=== PATIENT | male | born 1955 | race Caucasian/White ===

== ENCOUNTER 2017-09-08 18:09 | Inpatient (IN) ==
--- OUTSIDE RECORDS SUMMARY | 2017-09-08 18:15 | External Medical Summary | Continuity of Care Document ---
:1955 Author Organization [facility] Care Team Providers Name Role Phone [employer] Unavailable Unavailable Encounters Location Location Encounter Encounter Reason Attending ADM DC Status Source Details Type Number For Provider Date Date Visit Agnes Thompson [facility]
--- OUTSIDE RECORDS SUMMARY | 2017-09-08 18:15 | External Medical Summary | Continuity of Care Document ---
:1955 Author Organization [facility] [place] Allergies Active Description Code Type Severity Reaction Onset Reported/ Identified Relationship Clinical to Patient Status Yes PENICILLIN 985 Misce N/A N/A 02/07/2016 llane ous Aller gy Medications Medication Packaging Start Date Stop Date Route Dosage Sig 02/07/2016 02/08/2016 IVPB 500.000 REMICADE INJ CROSS 100MG 02/21/2016 02/22/2016 IVPB 500.000 REMICADE INJ CROSS 100MG Problems Date Dx Attending Type Code Diagnosis Diagnosed By Coded 07/12/2012 Ethel [id number] JOINT PAIN-ANKLE 03/31/2013 EMILY WOODY 54468 JOINT PAIN-MULT JTS D 01/12/2014 EMILY WOODY 719.43 JOINT PAIN-FOREARM D 01/12/2014 EMILY WOODY 78488 JOINT PAIN-FOREARM D 02/07/2016 EMILY WOODY 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 02/07/2016 EMILY WOODY Z11.1 ENCOUNTER FOR D SCREENING FOR RESPIRATORY TUBERCULOSIS 02/07/2016 EMILY WOODY 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 Results Test Result Range CBC/ AUTO DIFF - 01/12/14 15:45 WHITE BLOOD COUNT 6.72 10 4.60-10.20 HEMATOCRIT 40.2 % 42.0-52.0 HEMOGLOBIN 13.8 g/dl 14.0-18.0 PLATELET COUNT 244 10 142-424 RBC 4.53 10 4.70-6.10 MCV 88.7 fl 80.0-100.0 MCH 30.5 pg 26.0-34.0 MCHC 34.3 g/dl 29.0-37.0 RDW 13.4 % 11.5-14.5 MPV 10.20 fl GRAN% 68.9 % 37.0-80.0 LYMPH% 14.60 % 10.00-50.00 MONO% 13.80 % 0.00-12.00 EOS% 2.10 % 0.00-7.00 BASO% 0.60 % 0.00-2.50 GRAN# 4.63 10 2.00-6.90 LYMPH# 0.98 10 0.60-3.40 MONO# 0.93 10 0.00-0.90 EOS# 0.14 10 0.00-0.50 BASO# 0.04 10 0.00-0.20 COMPREHENSIVE METABOL - 01/12/14 15:45 CREATININE 1.2 mg/dl 0.6-1.3 SODIUM 141 mmol/L 136-145 TOTAL BILIRUBIN 0.3 mg/dl 0.0-1.0 TOTAL PROTEIN 6.5 g/dl 6.4-8.2 ALBUMIN 3.4 g/dl 3.4-5.0 ALK. PHOSPHATASE 90 U/L 50-136 BUN 15 mg/dl 7-18 CALCIUM 8.1 mg/dl 8.5-10.1 CHLORIDE 107 mmol/L 98-107 CO2 29.2 mmol/L 21.0-32.0 GLUCOSE 97 mg/dl 70-110 POTASSIUM 4.1 mmol/L 3.5-5.1 AST 10 U/L 15-37 ALT 25 U/L 12-78 AGAP 8.9 6.0-16.0 BN/CR 12.5 6.0-20.0 C REACTIVE PROTEIN - 01/12/14 15:45 C REACTIVE PROTEIN <0.2 mg/dl 0.0-0.9 URIC ACID - 01/12/14 15:45 URIC ACID 5.1 mg/dl 2.6-7.2 QUANTIFERON TB - 02/07/16 09:10 GREG TB Performing Site: [facility] [address] [facility] [id number] RUST METABOL - 11/06/16 17:00 CREATININE 1.1 mg/dl 0.6-1.3 SODIUM 142 mmol/L 136-145 TOTAL BILIRUBIN 0.3 mg/dl 0.0-1.0 TOTAL PROTEIN 6.5 g/dl 6.4-8.2 ALBUMIN 3.4 g/dl 3.4-5.0 ALK. PHOSPHATASE 69 U/L 50-136 BUN 20 mg/dl 7-18 CALCIUM 8.6 mg/dl 8.5-10.1 CHLORIDE 106 mmol/L 98-107 CO2 27.3 mmol/L 21.0-32.0 GLUCOSE 93 mg/dl 70-110 POTASSIUM 3.1 mmol/L 3.5-5.1 AST 14 U/L 15-37 ALT 24 U/L 12-78 AGAP 11.8 6.0-16.0 BN/CR 18.2 6.0-20.0 CBC/ AUTO DIFF - 11/06/16 17:00 WHITE BLOOD COUNT 7.02 10 4.60-10.20 HEMATOCRIT 39.5 % 42.0-52.0 HEMOGLOBIN 13.1 g/dl 14.0-18.0 PLATELET COUNT 242 10 142-424 RBC 4.27 10 4.70-6.10 MCV 92.5 fl 80.0-100.0 MCH 30.7 pg 26.0-34.0 MCHC 33.2 g/dl 29.0-37.0 RDW 14.0 % 11.5-14.5 MPV 11.10 fl GRAN% 72.4 % 37.0-80.0 LYMPH% 16.70 % 10.00-50.00 MONO% 9.00 % 0.00-12.00 EOS% 1.30 % 0.00-7.00 BASO% 0.60 % 0.00-2.50 GRAN# 5.09 10 2.00-6.90 LYMPH# 1.17 10 0.60-3.40 MONO# 0.63 10 0.00-0.90 EOS# 0.09 10 0.00-0.50 BASO# 0.04 10 0.00-0.20 CBC/ AUTO DIFF - 03/05/17 17:15 WHITE BLOOD COUNT 7.24 10 4.60-10.20 HEMATOCRIT 39.4 % 42.0-52.0 HEMOGLOBIN 13.3 g/dl 14.0-18.0 PLATELET COUNT 245 10 142-424 RBC 4.39 10 4.70-6.10 MCV 89.7 fl 80.0-100.0 MCH 30.3 pg 26.0-34.0 MCHC 33.8 g/dl 29.0-37.0 RDW 13.4 % 11.5-14.5 MPV 10.30 fl GRAN% 66.1 % 37.0-80.0 LYMPH% 19.10 % 10.00-50.00 MONO% 10.10 % 0.00-12.00 EOS% 3.90 % 0.00-7.00 BASO% 0.80 % 0.00-2.50 GRAN# 4.79 10 2.00-6.90 LYMPH# 1.38 10 0.60-3.40 MONO# 0.73 10 0.00-0.90 EOS# 0.28 10 0.00-0.50 BASO# 0.06 10 0.00-0.20 COMPREHENSIVE METABOL - 03/05/17 17:15 CREATININE 0.9 mg/dl 0.6-1.3 SODIUM 136 mmol/L 136-145 TOTAL BILIRUBIN 0.4 mg/dl 0.0-1.0 TOTAL PROTEIN 7.4 g/dl 6.4-8.2 ALBUMIN 3.4 g/dl 3.4-5.0 ALK. PHOSPHATASE 68 U/L 50-136 BUN 15 mg/dl 7-18 CALCIUM 8.7 mg/dl 8.5-10.1 CHLORIDE 102 mmol/L 98-107 CO2 25.3 mmol/L 21.0-32.0 GLUCOSE 92 mg/dl 70-110 POTASSIUM 3.0 mmol/L 3.5-5.1 AST 17 U/L 15-37 ALT 24 U/L 12-78 AGAP 11.7 6.0-16.0 BN/CR 16.7 6.0-20.0 QUANTIFERON TB - 03/05/17 17:15 GREG TB Performing Site: [facility] Reference Lab [address] [facility] [address] CBC/ AUTO DIFF - 08/27/17 13:10 WHITE BLOOD COUNT 6.55 10 4.60-10.20 HEMATOCRIT 43.9 % 42.0-52.0 HEMOGLOBIN 14.4 g/dl 14.0-18.0 PLATELET COUNT 229 10 142-424 RBC 4.60 10 4.70-6.10 MCV 95.4 fl 80.0-100.0 MCH 31.3 pg 26.0-34.0 MCHC 32.8 g/dl 29.0-37.0 RDW 15.6 % 11.5-14.5 MPV 10.00 fl GRAN% 68.7 % 37.0-80.0 LYMPH% 19.50 % 10.00-50.00 MONO% 9.20 % 0.00-12.00 EOS% 1.50 % 0.00-7.00 BASO% 1.10 % 0.00-2.50 GRAN# 4.50 10 2.00-6.90 LYMPH# 1.28 10 0.60-3.40 MONO# 0.60 10 0.00-0.90 EOS# 0.10 10 0.00-0.50 BASO# 0.07 10 0.00-0.20 SEGS 67 % 40-60 LYMPHS 22 % 20-40 MONOS 11 % 4-8 PLTMORPH NORMAL ANISO 1+ COMPREHENSIVE METABOL - 08/27/17 13:10 CREATININE 1.1 mg/dl 0.6-1.3 SODIUM 143 mmol/L 136-145 TOTAL BILIRUBIN 0.4 mg/dl 0.0-1.0 TOTAL PROTEIN 6.4 g/dl 6.4-8.2 ALBUMIN 3.4 g/dl 3.4-5.0 ALK. PHOSPHATASE 72 U/L 50-136 BUN 21 mg/dl 7-18 CALCIUM 9.2 mg/dl 8.5-10.1 CHLORIDE 104 mmol/L 98-107 CO2 32.1 mmol/L 21.0-32.0 GLUCOSE 113 mg/dl 70-110 POTASSIUM 3.2 mmol/L 3.5-5.1 AST 17 U/L 15-37 ALT 34 U/L 12-78 AGAP 10.1 6.0-16.0 BN/CR 19.1 6.0-20.0 Encounters ACCT No. Visit Discharge Status Pt. Type Provider Facility Loc./Unit Complaint Date/Time [id number] 08/27/2017 08/27/2017 DIS Outpatient BONG [facility] LAB 13:00:00 13:00:00 [facility] [id number] 03/05/2017 03/05/2017 DIS Outpatient BONG [facility] LAB 16:55:00 16:55:00 [facility] [id number] 11/06/2016 11/06/2016 DIS [facility] BONG [facility] LAB 16:41:00 16:41:00 [facility] [id number] 06/12/2016 06/12/2016 DIS Outpatient BONG [facility] RAD 16:18:00 16:18:00 [facility] [id number] 02/21/2016 02/21/2016 DIS Outpatient ZANDER [facility] MOP 08:50:00 13:02:00 [facility] [id number] 02/07/2016 02/07/2016 DIS Outpatient BONG [facility] LOP 08:54:00 12:23:00 [facility] [id number] 01/10/2016 01/10/2016 CAN Outpatient BNOG [facility] MOP 08:07:42 08:07:42 [facility] [id number] 01/12/2014 01/12/2014 DIS Outpatient BONG [facility] LX 15:24:00 15:24:00 [facility] [place] [id number] 03/31/2013 03/31/2013 DIS Outpatient BONG [facility] LX 17:24:00 17:24:00 [facility] [id number] 07/12/2012 Document 10:45:00 Registration
[2017-09-08] MEDS ORDERED: NITROGLYCERIN 2% OINTMENT 1gm PACKET TP ONE (18:26)
[2017-09-08 19:27] VITALS: BMI 30.3
[2017-09-08] MEDS: MORPHINE SULFATE 10 MG SYRINGE IVP PRN ×2 (21:27→23:58)
[2017-09-09] MEDS: MORPHINE SULFATE 10 MG SYRINGE IVP PRN ×2 (05:33→11:04)
[2017-09-09] MEDS ORDERED: HEPARIN 1,000unit/ml INJECTION 10ml IVP ONE (06:00)
[2017-09-09] MEDS ORDERED: HEPARIN DRIP 20,000 UNIT/500 ML BAG IV SCH (06:00)
[2017-09-09] MEDS ORDERED: HEPARIN - PHARMACY CONSULT MC ONE (06:00)
--- NOTE | 2017-09-09 07:10 | Pharmacy Consult ---
Pharmacy Consult-Heparin - Laboratory Information Heparin Plt Count 214 T/MM3 (130-400) 09/09/17 04:17 APTT 34.4 SEC (24-36) 09/08/17 19:37 - Consult Information HEPARIN CONSULT (Initial): CARDIAC DOSING HEPARIN PROTOCOL Baseline PTT = 34.4 Sec. Baseline platelet count = 228 T/mm3. PTT Target Range = 50-75 SEC Will give Heparin Bolus of 5500 units, start Heparin Drip at 1120units/hr (28ml/ hr). Heparin 20,000 units in D5W 500ml. We will continue to monitor and make adjustments accordingly. Thank you.
[2017-09-09] MEDS: ASPIRIN 81 MG CHEWABLE TABLET PO SCH (08:18)
--- NOTE | 2017-09-09 10:56 | Cardiology History & Physical ---
History of Present Illness Chief complaint: Chest Pain, Elevated Troponin HPI: Pt is a 61 year old male with a PMH of HTN, COPD, and ankylosing spondylitis who presented to [facility] last evening following a 2-day history of increasing chest pain. Pt reports a burning, mid-sternal chest pain without radiation with associated nausea, diaphoresis, shortness of breath and near syncope. Pt states the chest pain was not precipitated by any particular activity and has not subsided with rest. Troponin was found to be elevated at 4.56 and EKG indicates possible anterolateral infarct. Pt received 324 mg of ASA and 100 mg of Lovenox SC prior to transfer to [facility]. Pt continues to report chest pain and ongoing shortness of breath requiring 2L of O2 per MT. Pt does not require oxygen at home. Review of Systems - Constitutional Constitutional: Absent: chills, fever(s) - EENMT Eyes: Absent: loss of vision Ears: Absent: ear discharge, ear pain Balance: Absent: vertigo Mouth/Throat: Absent: changes in swallowing - Cardiovascular Cardiovascular: Absent: chest pain, palpitations, syncope, edema, heart murmur Rhythm: Present: regular rhythm Vascular: Present: intermittent claudication, pedal edema Cardiovascular Comments: Intermittent - Respiratory Respiratory: Present: cough, dyspnea, dyspnea on exertion. Absent: chest congestion, excessive phlegm production Respiratory Comments: NonproductiveO2 per NC - Gastrointestinal Gastrointestinal: Absent: abdominal pain, diarrhea, nausea, vomiting - Genitourinary Genitourinary: Absent: dysuria, urinary frequency, urinary urgency - Musculoskeletal Musculoskeletal: Present: arthralgias - Integumentary/Breasts Integumentary: Absent: rash - Neurological Neurological: Absent: abnormal speech, dizziness - Psychiatric Psychiatric: Absent: anxiety, depression [facility] Patient Stated Medical History Angina Yes Hypertension Yes Chronic Obstructive Pulmonary Yes: 2000 Disease (COPD) Hx Kidney Stones Yes Other Musculoskeletal Yes: ANKYLOSING SPONDYLYTIS Chemotherapy Yes: METHOTREXATE Surgical History: Multiple back surgeries. Hernia surgery x 4. Appendectomy Family History: Mother - HTN, from [place] Sister - [place] associated at age 54 - Social History Smoking status: Former smoker Substance use type: does not use Alcohol intake: current Alcohol intake frequency: holidays/special occasions only Housing: house Household members: spouse Does patient use chewing tobacco?: No Current residence: Apartment/Private Home Medications Home Medications Medication Instructions Recorded Confirmed Type Albuterol Sulfate [Proair Hfa] 8.5 gm IH PRN #0 12/09/11 History Adalimumab [Humira] 40 mg SQ FR 09/08/17 09/08/17 History Atenolol [Tenormin] 1 tab PO DAILY 09/08/17 09/08/17 History Chlorthalidone 25 mg PO DAILY 09/08/17 09/08/17 History Cyclobenzaprine [Flexeril] 1 tab PO HS 09/08/17 09/08/17 History Diclofenac Potassium 1 tab PO BID 09/08/17 09/08/17 History Duloxetine [Cymbalta] 60 mg PO HS 09/08/17 09/09/17 History Leflunomide 20 mg PO DAILY 09/08/17 09/08/17 History METHOTREXATE 2.5mg TAB 2.5 mg PO SA 09/08/17 09/08/17 History [Methotrexate] Potassium Chloride 20 meq PO DAILY 09/08/17 09/08/17 History PredniSONE [Deltasone 5 mg] 7.5 mg PO DAILY 09/08/17 09/08/17 History Diclofenac Sodium 50 mg PO BID 09/09/17 09/09/17 History Allergies Allergy/AdvReac Type Severity Reaction Status Date / Time Penicillins Allergy HEART Verified 09/08/17 19:12 STOPPAGE Exam Vital signs: Temperature 98.0 F 09/09/17 08:30 Pulse Rate 79 09/09/17 08:49 Respiratory Rate 18 09/09/17 08:30 Blood Pressure 122/77 09/09/17 08:30 Pulse Oximetry 95 09/09/17 08:30 - Constitutional no acute distress, well nourished, cooperative - Routine HEENT Exam Head: Present: normocephalic, atraumatic Eye: Present: EOMI, PERRL ENT: Present: mucous membranes moist - Routine Neck Exam Present: supple, trachea midline. Absent: JVD, carotid bruit - Routine Chest/Breast/Axilla Exam Chest wall: Absent: tenderness - Routine Respiratory Exam Present: decreased breath sounds Comments: O2 per NC - Routine Cardiovascular Exam Present: RRR, S1, S2. Absent: no murmur, JVD - Routine Abdominal Exam Present: soft, normoactive bowel sounds, non tender - Routine Extremities Exam Present: pulses intact. Absent: no edema - Routine Skin Exam Present: intact, dry, warm - Routine Neurological Exam Present: alert, oriented X3, moving all extremities, normal speech - Routine Psychiatric Exam Present: normal affect, normal thought process, cooperative Results 09/10/17 04:36 09/10/17 04:36 Cardiac Enzymes 09/08/17 09/08/17 09/09/17 Range/Units 18:39 23:54 04:17 Troponin I 4.660 H 3.680 H 3.720 H (0-0.12) ng/ml Coagulation 09/08/17 Range/Units 19:37 APTT 34.4 (24-36) SEC Lipids 09/09/17 Range/Units 04:17 Triglycerides 327 H (40-160) mg/dL Cholesterol 252 H (132-199) mg/dL HDL Cholesterol 40 (40-60) mg/dL Cholesterol/HDL Ratio 6.3 H (0-5.0) RATIO CBC 09/08/17 09/09/17 Range/Units 19:37 04:17 WBC 11.6 H 9.3 (4.5-11.0) T/MM3 RBC 4.59 4.40 L (4.50-5.90) M/MM3 Hgb 14.4 13.8 (13.5-17.5) GM/DL Hct 44.1 43.0 (41-53) % Plt Count 228 214 (130-400) T/MM3 Neut # (Auto) 9.6 H 6.8 (1.8-7.7) T/MM3 Lymph # (Auto) 1.0 1.5 (1-4.8) T/MM3 [place] # (Auto) 0.8 0.9 H (0-0.8) T/MM3 Eos # (Auto) 0.0 0.1 (0-0.5) T/MM3 Baso # (Auto) 0.0 0.0 (0-0.2) T/MM3 Comprehensive Metabolic Panel 09/09/17 Range/Units 04:17 Sodium 145 H (134-144) MEQ/L Potassium 3.9 (3.6-5) MEQ/L Chloride 103 (98-107) MEQ/L Carbon Dioxide 33 H (22-30) MEQ/L BUN 16.0 (9-20) MG/DL Creatinine 0.9 (0.8-1.5) mg/dL Glucose 107 (75-110) MG/DL Calcium 9.4 (8.4-10.2) MG/DL Intake and Output 09/08/17 09/09/17 09/09/17 22:59 06:59 14:59 Intake Total 120 / 120 120 / 120 120 / 120 Output Total 500 / 500 425 / 425 0 / 0 Balance -380 / -380 -305 / -305 120 / 120 Intake: Oral 120 / 120 120 / 120 120 / 120 Output: Urine 500 / 500 425 / 425 0 / 0 Other: Urine Appearance Clear Clear Urine Color Yellow Dark Yellow Weight 95.9 kg 95.3 kg Patient Weight 09/10/17 06:59 Weight 95.3 kg - Imaging and Cardiology Echo: pending EKG results: image reviewed - EKG Interpretation EKG: sinus rhythm (Inferior infarct, age undetermined, ST-T changes to II and AVF) EKG shows: sinus rhythm EKG interpretations - EKG EKG results cardiology: sinus rhythm - Dysrhythmias Sinus rhythms and dysrhythmias: sinus rhythm - Blocks, axis, hypertrophy, ST abn Repolarization changes or abnormalities: ST or T wave suggestive of ischemia - AK, pacemaker, normal Myocardial infarction: inferior AK (old age indeterminate) Hospital Course This is a general summary of the patient's hospital course. For more details refer to the complete medical record. Time spent with patient: 25 - 35 minutes Assessment and Plan - Assessment and Plan (1) Chest pain Current visit: Yes Status: Acute (2) Elevated troponin Current visit: Yes Status: Acute (3) Hypertension Current visit: Yes Status: Acute (4) Hyperlipidemia Current visit: Yes Status: Acute (5) Ankylosing spondylitis Current visit: Yes Status: Chronic (6) COPD (chronic obstructive pulmonary disease) Current visit: Yes Status: Chronic - Assessment and Plan Chest Pain/Elevated Troponin - Troponin 4.6 >>3.6>>3.7 - EKG: SR, Inferior AK (age undetermined), - Left Heart Cath today - Start asa 81 mg and lisinopril 2.5 mg daily - Resume Atenolol 100 mg daily - Echo pending Hypertension - Resume BB and chlorthalidone - Start lisinopril 2.5 mg daily Hyperlipidemia - LDL 146.6 - Start Atorvastatin 40 mg PO daily Ankylosing Spondylitis - Resume home meds - Managed by PCP COPD - Resume home meds - Managed by PCP
[2017-09-09] MEDS ORDERED: IOHEXOL 350mg/ml 200ml BOTTLE ONE ×2 (11:10→13:34)
[2017-09-09] MEDS ORDERED: LIDOCAINE 1% (10mg/ml) 30ml SDV INJ ONE (11:10)
[2017-09-09] MEDS ORDERED: HEPARIN 1,000 UNITS/500 ML PREMIX (*CVL ONLY*) IV ONE (11:10)
[2017-09-09] MEDS: NS 1,000 ML IV SCH (11:38)
[2017-09-09] MEDS ORDERED: NITROGLYCERIN 50MG INJECTION IV ONE (13:06)
[2017-09-09] MEDS ORDERED: MIDAZOLAM 2mg/2ml INJECTION ONE (13:06)
[2017-09-09] MEDS ORDERED: Verapamil 5 MG/2 ML VIAL ONE (13:06)
[2017-09-09] MEDS ORDERED: FentaNYL 250 MCG/5 ML INJECTION ONE (13:07)
[2017-09-09] MEDS ORDERED: HEPARIN 1,000unit/ml INJECTION 10ml ONE (13:07)
[2017-09-09] MEDS ORDERED: TICAGRELOR 90 MG TABLET ONE (13:24)
[2017-09-09] MEDS ORDERED: EPTIFIBATIDE ONE (13:36)
[2017-09-09] MEDS ORDERED: EPTIFIBATIDE 75 MG/100 ML VIAL IV ONE (13:36)
[2017-09-09] MEDS ORDERED: HYDROCODONE/APAP 5mg/325mg TABLET PO PRN (14:34)
[2017-09-09] MEDS ORDERED: METOCLOPRAMIDE 10mg/2ml INJECTION IVP PRN (14:34)
[2017-09-09] MEDS ORDERED: NITROGLYCERIN 0.4 MG SUBLINGUAL TABLET SL PRN (14:34)
[2017-09-09] MEDS ORDERED: ONDANSETRON 4 MG/2 ML INJECTION IVP PRN (14:34)
[2017-09-09] MEDS ORDERED: BISACODYL 10 MG SUPPOSITORY RECTALLY PRN (14:34)
[2017-09-09] MEDS ORDERED: ATROPINE 1 MG/ML INJECTION IVP PRN (14:34)
[2017-09-09] MEDS ORDERED: ACETAMINOPHEN 325 MG TABLET PO PRN (14:34)
[2017-09-09] MEDS ORDERED: MORPHINE SULFATE 4mg INJECTION IVP PRN ×2 (14:34)
[2017-09-09] MEDS ORDERED: Bisacodyl EC TAB 5 MG TABLET PO PRN (14:34)
[2017-09-09] MEDS ORDERED: LORazepam 0.5 MG TABLET PO PRN (14:34)
[2017-09-09] MEDS ORDERED: PROMETHAZINE 25 MG INJECTION IVP PRN (14:34)
[2017-09-09] MEDS ORDERED: MAG-AL + SIM ORAL LIQUID 30ml PO PRN (14:34)
[2017-09-09] MEDS: LISINOPRIL 2.5 MG TABLET PO SCH (14:45)
[2017-09-09] MEDS: EPTIFIBATIDE 75 MG/100 ML VIAL IV SCH ×3 (14:46→20:29)
[2017-09-09] MEDS ORDERED: SALINE 0.65% NASAL SPRAY 44 ML BOTTLE EA NOSTRIL PRN (18:30)
[2017-09-09] MEDS ORDERED: CYCLOBENZAPRINE 10 MG TABLET PO SCH (21:00)
[2017-09-09] MEDS ORDERED: DULOXETINE 60 MG CAPSULE PO SCH (21:00)
[2017-09-09] MEDS ORDERED: ATORVASTATIN 40 MG TABLET PO SCH (21:00)
[2017-09-10] MEDS: NS 1,000 ML IV SCH (00:03)
[2017-09-10] MEDS: EPTIFIBATIDE 75 MG/100 ML VIAL IV SCH ×2 (00:42→04:46)
[2017-09-10] MEDS ORDERED: TICAGRELOR 90 MG TABLET PO SCH (01:37)
--- NOTE | 2017-09-10 06:48 | Echocardiogram ---
DATE OF PROCEDURE September 09, 2017 This is a two-dimensional echo with spectral Doppler, color-flow and M-mode. It was obtained in a patient with chest pain. Left atrium is dilated. Left ventricular end-diastolic dimension is normal. Left ventricle wall thickness is increased. Inferior and basal septum are hypokinetic with ejection fraction of about 55%. Right atrium is normal. Right ventricle is normal. Aortic root dimension is normal. Mitral valve is morphologically normal with mild mitral regurgitation. Aortic valve appears to be normal. Tricuspid valve shows mild tricuspid regurgitation with normal estimated pulmonary artery systolic pressure of 23. Pulmonary valve shows trace of pulmonary insufficiency. There is no pericardial effusion. IMPRESSION 1. Wall motion abnormalities as described above with ejection fraction of about 55%. 2. Concentric left ventricular hypertrophy. 3. Left atrial dilation. 4. Mild mitral regurgitation. 5. Mild tricuspid regurgitation with normal estimated pulmonary artery systolic pressure of 23. 6. Trace of pulmonary insufficiency. MTDD
--- NOTE | 2017-09-10 07:51 | Cardiac Catheterization Report ---
DATE OF PROCEDURE September 09, [address] Nestor Blanchard The patient is a pleasant 61-year-old gentleman with chest pain and elevation in troponin and was referred for further evaluation by cardiac catheterization and possible intervention. Informed consent was obtained after explaining the procedure and the potential risks to the patient who agreed to proceed with the procedure. PROCEDURE 1. Left heart catheterization. 2. Coronary angiography. 3. Left ventriculography. 4. Recanalization PTCA and stent of the RCA using a 2.75 x 18 drug-eluting Resolute [place] stent. TECHNIQUE He was prepped and draped in the usual sterile techniques. Conscious sedation was performed using Versed and fentanyl. 1% lidocaine was used for local anesthesia. Using modified Seldinger technique, arterial access was obtained into the right radial artery with placement of a 6-Tanzanian arterial sheath. 3000 units of heparin, 300 mcg of nitroglycerin, and 2.5 mg of verapamil were given through the arterial sheath. The patient was on heparin drip. Heparin drip was stopped after additional 2000 units of IV heparin. He also received 180 mg of Brilinta in lab specialist. He was also started on Integrilin. CORONARY ANGIOGRAPHY Left main was free of significant lesions. Left anterior descending artery had minor irregularities with no significant lesions in LAD or diagonals. Left circumflex artery was codominant with no significant lesions in circumflex or marginals. Right coronary artery was occluded distally with [id number] collaterals. After reviewing the images we decided to proceed with intervention on RCA. A 6- [place] Ikari guide was advanced to the ostium of the right coronary artery. A Runthrough wire was used to cross the lesion into distal RCA. We attempted to get a 2.0 x 15 balloon to the lesion site. However, we were not able to advance it through the midsegment of the RCA due to lack of backup support and therefore we changed our guide. We used an AL-2 guide which was advanced to the ostium of the right coronary artery. A Runthrough wire was used to cross the lesion again into distal PDA. A 2.0 x 15 balloon was delivered to the lesion site where it was inflated up to 14 atmospheres. Next, angiogram showed reconstitution of the flow. However, flow was quite slow distal to the occlusion. At this point we started him on Integrilin and used a 2.75 x 18 drug -eluting Resolute Mark stent which was delivered to the lesion site and deployed by inflating the balloon to 14 atmospheres. Next, angiogram showed excellent results with no residual stenosis with improved blood flow into distal RCA and into the PDA. The patient tolerated the procedure well with no complications. IMPRESSION 1. Coronary artery disease as described above. 2. Occlusion of the distal RCA. 3. Successful recanalization PTCA and stent of the distal RCA using a 2.75 x 18 drug-eluting Resolute Mark stent. PLAN Will keep him on dual antiplatelet therapy at least for one year. Will continue Integrilin for 18 hours. Will start him on beta blockers, GILSON inhibitors and statins and follow him closely. ALANA
[2017-09-10] MEDS ORDERED: PredniSONE 5 MG TABLET PO SCH (08:00)
[2017-09-10] MEDS: ASPIRIN 81 MG CHEWABLE TABLET PO SCH (08:19)
[2017-09-10] MEDS: LISINOPRIL 2.5 MG TABLET PO SCH (08:20)
[2017-09-10 08:46] VITALS: BP 130/71; RESP 20; TEMP 98; O2SAT 97
[2017-09-10 08:52] VITALS: PULSE 112
[2017-09-10] MEDS ORDERED: LEFLUNOMIDE 10 MG TABLET PO SCH (09:00)
[2017-09-10] MEDS ORDERED: CHLORTHALIDONE 25 MG TABLET PO SCH (09:00)
[2017-09-10] MEDS ORDERED: ASPIRIN *EC* 81 MG TABLET PO SCH (09:00)
[2017-09-10] MEDS ORDERED: DULOXETINE 60 MG CAPSULE PO SCH (09:00)
[2017-09-10] MEDS ORDERED: ATENOLOL 100 MG TABLET PO SCH (09:00)
--- NOTE | 2017-09-10 10:42 | Work/School Release ---
Work/School Release - Date Date: 09/10/17 - Work Release Remain off work/school for:: 1 week Excused for:: MS s/p PCI with stenting to RCA May return to work on:: September 18, 2017 Restrictions:: No driving, no lifting >10 lbs for one week, no strenuous pushing or pulling for one week May resume normal activity on:: 09/18/17
--- NOTE | 2017-09-10 10:53 | Discharge Summary ---
<Ciara Wren - Last Filed: 09/10/17 11:13> Discharge Information Date of admission: 09/09/17 15:00 Anticipated date of discharge: 09/10/17 (Stable) Attending Physician: Felix Heredia MD Primary care physician: Nestor Blanchard, DO Consults: 09/09/17 14:34 Outpt Cardiac Rehab Consult [CONS] Routine - Discharge Diagnosis (1) Chest pain Status: Resolved (2) Elevated troponin Status: Acute (3) Hypertension Status: Chronic (4) Hyperlipidemia Status: Chronic (5) Ankylosing spondylitis Status: Chronic (6) COPD (chronic obstructive pulmonary disease) Status: Chronic (7) Hypokalemia Status: Acute CAD, HTN, HLD, COPD, ankylosing spondylosis, s/p PCI with stenting to RCA, hypokalemia - Procedures Procedures: [place] [address] Cardiac Catheterization Report Draft Patient: Elbert Cueva MR#: [id number] : 1955 Age/Sex: 61 / M ADM Date: 09/09/17 Loc: CCU 3-P DIS Date: = = = = = = = = = = = = = = = = = = = = = = = = = = = = = = = = = = = = = = = = = = = = = = = = = = = = = = = = = = = Date of Exam: 09/09/17 Type of Exam(s): CA heart cath LT DATE OF PROCEDURE September 09, [address] Nestor Blanchard The patient is a pleasant 61-year-old gentleman with chest pain and elevation in troponin and was referred for further evaluation by cardiac catheterization and possible intervention. Informed consent was obtained after explaining the procedure and the potential risks to the patient who agreed to proceed with the procedure. PROCEDURE 1. Left heart catheterization. 2. Coronary angiography. 3. Left ventriculography. 4. Recanalization PTCA and stent of the RCA using a 2.75 x 18 drug-eluting Resolute Mark stent. TECHNIQUE He was prepped and draped in the usual sterile techniques. Conscious sedation was performed using Versed and fentanyl. 1% lidocaine was used for local anesthesia. Using modified Seldinger technique, arterial access was obtained into the right radial artery with placement of a 6-Spanish arterial sheath. 3000 units of heparin, 300 mcg of nitroglycerin, and 2.5 mg of verapamil were given through the arterial sheath. The patient was on heparin drip. Heparin drip was stopped after additional 2000 units of IV heparin. 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 He was also started on Integrilin. CORONARY ANGIOGRAPHY Left main was free of significant lesions. Left anterior descending artery had minor irregularities with no significant lesions in LAD or diagonals. Left circumflex artery was codominant with no significant lesions in circumflex or marginals. Right coronary artery was occluded distally with [id number] collaterals. After reviewing the images we decided to proceed with intervention on RCA. A 6- Spanish Ikari guide was advanced to the ostium of the right coronary artery. A Runthrough wire was used to cross the lesion into distal RCA. We attempted to get a 2.0 x 15 balloon to the lesion site. However, we were not able to advance it through the midsegment of the RCA due to lack of backup support and therefore we changed our guide. We used an AL-2 guide which was advanced to the ostium of the right coronary artery. A Runthrough wire was used to cross the lesion again into distal PDA. A 2.0 x 15 balloon was delivered to the lesion site where it was inflated up to 14 atmospheres. Next, angiogram showed reconstitution of the flow. However, flow was quite slow distal to the occlusion. At this point we started him on Integrilin and used a 2.75 x 18 drug -eluting Resolute Mark stent which was delivered to the lesion site and deployed by inflating the balloon to 14 atmospheres. Next, angiogram showed excellent results with no residual stenosis with improved blood flow into distal RCA and into the PDA. The patient tolerated the procedure well with no complications. IMPRESSION 1. Coronary artery disease as described above. 2. Occlusion of the distal RCA. 3. Successful recanalization PTCA and stent of the distal RCA using a 2.75 x 18 drug-eluting Resolute Mark stent. PLAN Will keep him on dual antiplatelet therapy at least for one year. Will continue Integrilin for 18 hours. Will start him on beta blockers, GILSON inhibitors and statins and follow him closely. - Laboratory Labs: 09/10/17 04:36 09/10/17 04:36 - Radiology Radiology: [address] [address] Echocardiogram Draft Patient: Elbert Cueva MR#: [id number] : 1955 Age/Sex: 61 / M ADM Date: 09/09/17 Loc: CCU 3-P DIS Date: = = = = = = = = = = = = = = = = = = = = = = = = = = = = = = = = = = = = = = = = = = = = = = = = = = = = = = = = = = = Date of Exam: 09/09/17 Type of Exam(s): US echo doppler complete DATE OF PROCEDURE September 09, 2017 This is a two-dimensional echo with spectral Doppler, color-flow and M-mode. It was obtained in a patient with chest pain. Left atrium is dilated. Left ventricular end-diastolic dimension is normal. Left ventricle wall thickness is increased. Inferior and basal septum are hypokinetic with ejection fraction of about 55%. Right atrium is normal. Right ventricle is normal. Aortic root dimension is normal. Mitral valve is morphologically normal with mild mitral regurgitation. Aortic valve appears to be normal. Tricuspid valve shows mild tricuspid regurgitation with normal estimated pulmonary artery systolic pressure of 23. Pulmonary valve shows trace of pulmonary insufficiency. There is no pericardial effusion. IMPRESSION 1. Wall motion abnormalities as described above with ejection fraction of about 55%. 2. Concentric left ventricular hypertrophy. 3. Left atrial dilation. 4. Mild mitral regurgitation. 5. Mild tricuspid regurgitation with normal estimated pulmonary artery systolic pressure of 23. 6. Trace of pulmonary insufficiency. History of Present Illness HPI: Pt is a 61 year old male with a PMH of HTN, COPD, and ankylosing spondylitis who presented to [facility] last evening following a 2-day history of increasing chest pain. Pt reports a burning, mid-sternal chest pain without radiation with associated nausea, diaphoresis, shortness of breath and near syncope. Pt states the chest pain was not precipitated by any particular activity and has not subsided with rest. Troponin was found to be elevated at 4.56 and EKG indicates possible anterolateral infarct. Pt received 324 mg of ASA and 100 mg of Lovenox SC prior to transfer to [facility]. Pt continues to report chest pain and ongoing shortness of breath requiring 2L of O2 per NC. Pt does not require oxygen at home. Pt underwent right radial, left heart cath on 09/09 with successful stenting of the RCA. 09/10/17 10:55 09/10/17 11:02 Hospital Course This is a general summary of the patient's hospital course. For more details refer to the complete medical record. Chest Pain/Elevated Troponin - Troponin 4.6 >>3.6>>3.7>>4.6 - EKG 09/10/17: SR, LVH, Anterior and Inferior IL (age undetermined), - Left Heart Cath 09/09/17 with stenting to the RCA - Continue asa 81 mg, lisinopril 2.5 mg daily, and Brilinta 90 mg PO BID - Continue Atenolol 100 mg daily - Echo 09/09/17 1. Wall motion abnormalities as described above with ejection fraction of about 55%. 2. Concentric left ventricular hypertrophy. 3. Left atrial dilation. 4. Mild mitral regurgitation. 5. Mild tricuspid regurgitation with normal estimated pulmonary artery systolic pressure of 23. 6. Trace of pulmonary insufficiency. - Pt and family educated extensively regarding the importance of taking Brilinta and asa daily and to not stop taking for any reason. Pt is to notify Dr. Heredia 's office if having any difficulties with Brilinta. - 30 day Rx for Brilinta provided - 90 day Rx for Brilinta, and Rx for lisinopril and atorvastatin provided to [facility] in [place] - Work release provided to pt - Family emergency note provided to pt's daughter Hypertension - Continue BB, chlorthalidone, and GILSON Hyperlipidemia - LDL 146.6 - Continue Atorvastatin 40 mg PO daily Ankylosing Spondylitis - Resume home meds - Managed by PCP COPD - Resume home meds - Managed by PCP Hypokalemia - K+ 3.1 this am - Potassium 40 MeQ PO x 1 this am - Follow up with PCP Time spent with patient: 25 - 35 minutes Resuscitation Status: Full Code Exam Vital signs: Temperature 98.0 F 09/10/17 08:01 Pulse Rate 112 H 09/10/17 08:52 Respiratory Rate 20 09/10/17 07:00 Blood Pressure 130/71 09/10/17 08:01 Pulse Oximetry 97 09/10/17 08:01 - Constitutional no acute distress, well nourished, cooperative - Routine HEENT Exam Head: Present: normocephalic, atraumatic Eye: Present: EOMI, PERRL ENT: Present: mucous membranes moist - Routine Neck Exam Present: supple, trachea midline. Absent: JVD, carotid bruit - Routine Chest/Breast/Axilla Exam Chest wall: Absent: tenderness - Routine Respiratory Exam Present: CTA bilaterally - Routine Cardiovascular Exam Present: RRR, S1, S2. Absent: no murmur, JVD - Routine Abdominal Exam Present: soft, normoactive bowel sounds, non tender - Routine Extremities Exam Present: no edema, pulses intact, normal capillary refill Comments: Good pulse to right radial. No redness, swelling or drainage noted. - Routine Skin Exam Present: warm - Routine Neurological Exam Present: alert, oriented X3, moving all extremities - Routine Psychiatric Exam Present: normal affect, normal thought process, cooperative Results 09/10/17 04:36 09/10/17 04:36 Cardiac Enzymes 09/10/17 Range/Units 04:36 Troponin I 4.630 H (0-0.12) ng/ml CBC 09/09/17 09/10/17 Range/Units 17:37 04:36 WBC 8.6 8.4 (4.5-11.0) T/MM3 RBC 4.31 L 4.24 L (4.50-5.90) M/MM3 Hgb 13.6 13.3 L (13.5-17.5) GM/DL Hct 41.9 41.4 (41-53) % Plt Count 201 207 (130-400) T/MM3 Neut # (Auto) 5.8 (1.8-7.7) T/MM3 Lymph # (Auto) 1.3 (1-4.8) T/MM3 [place] # (Auto) 1.1 H (0-0.8) T/MM3 Eos # (Auto) 0.1 (0-0.5) T/MM3 Baso # (Auto) 0.0 (0-0.2) T/MM3 Comprehensive Metabolic Panel 09/10/17 Range/Units 04:36 Sodium 141 (134-144) MEQ/L Potassium 3.1 L D (3.6-5) MEQ/L Chloride 101 (98-107) MEQ/L Carbon Dioxide 31 H (22-30) MEQ/L BUN 15.0 (9-20) MG/DL Creatinine 1.0 (0.8-1.5) mg/dL Glucose 94 (75-110) MG/DL Calcium 9.1 (8.4-10.2) MG/DL Intake and Output 09/09/17 09/10/17 09/10/17 22:59 06:59 14:59 Intake Total 772.794 / 772.794 721.984 / 721.984 377.936 / 377.936 Output Total 400 / 400 600 / 600 Balance 372.794 / 372.794 121.984 / 121.984 377.936 / 377.936 Intake: IV 672.794 / 672.794 721.984 / 721.984 187.936 / 187.936 Eptifibatide 75 mg In 100 ml @ 110.294 / 110.294 121.984 / 121.984 19.186 / 19.186 2 MCG/KG/MIN 15.248 mls/hr IV . Q6H34M DG Rx#:[id number] Ns 1,000 ml @ 75 mls/hr IV . 562.5 / 562.5 600.00 / 600.00 168.75 / 168.75 [id number] DG Rx#:[id number] Oral 100 / 100 190 / 190 Output: Urine 400 / 400 600 / 600 Other: # Voids 1 2 - Imaging and Cardiology EKG results: image reviewed - EKG Interpretation EKG: sinus rhythm (LVH, anterior and inferior IL, age undetermined) Discharge Plan - Med Rec/Dispo Referrals/Follow Up: Felix Heredia MD [Physician] - 09/28/17 9:00 am Hilary Instructions: [facility] Heart Cath Trans Rad Prescriptions: New Adalimumab [Humira] 40 mg PO FR Aspirin *EC* [Ecotrin] 81 mg PO DAILY tab Atenolol [Tenormin] 100 mg PO DAILY tab Cyclobenzaprine [Flexeril] 10 mg PO HS tab Duloxetine [Cymbalta] 60 mg PO HS cap Leflunomide [Arava] 20 mg PO DAILY tab Lisinopril [Prinivil] 2.5 mg PO DAILY #30 tab Atorvastatin [Lipitor] 40 mg PO HS #30 tab Ticagrelor [Brilinta] 90 mg PO Q12H #180 tab Continue Duloxetine [Cymbalta] 60 mg PO HS Potassium Chloride 20 meq PO DAILY Cyclobenzaprine [Flexeril] 1 tab PO HS Leflunomide 20 mg PO DAILY Atenolol [Tenormin] 1 tab PO DAILY PredniSONE [Deltasone 5 mg] 7.5 mg PO DAILY Adalimumab [Humira] 40 mg SQ FR Diclofenac Sodium 50 mg PO BID Albuterol Sulfate [Proair Hfa] 8.5 gm IH PRN #0 PRN Reason: Air Hunger Diclofenac Potassium 1 tab PO BID Chlorthalidone 25 mg PO DAILY METHOTREXATE 2.5mg TAB [Methotrexate] 2.5 mg PO SA - Disposition 01 Discharged Home, Self-Care - Dismissal Complete Discharge Instructions are:: Complete <Felix Heredia - Last Filed: 09/13/17 16:28> Discharge Information Date of admission: 09/09/17 15:00 Attending Physician: Felix Heredia MD Primary care physician: Nestor Blanchard DO Consults: 09/09/17 14:34 Outpt Cardiac Rehab Consult [CONS] Routine - Discharge Diagnosis (1) NSTEMI (non-ST elevated myocardial infarction) Status: Acute (2) Chest pain Status: Resolved (3) Elevated troponin Status: Acute (4) Hypertension Status: Chronic (5) Hyperlipidemia Status: Chronic (6) Ankylosing spondylitis Status: Chronic (7) COPD (chronic obstructive pulmonary disease) Status: Chronic (8) Hypokalemia Status: Acute NSTEMI - Laboratory Labs: 09/10/17 04:36 09/10/17 04:36 Hospital Course This is a general summary of the patient's hospital course. For more details refer to the complete medical record. Exam Vital signs: Temperature 98.0 F 09/10/17 08:01 Pulse Rate 112 H 09/10/17 08:52 Respiratory Rate 20 09/10/17 07:00 Blood Pressure 130/71 09/10/17 08:01 Pulse Oximetry 97 09/10/17 08:01 Results 09/10/17 04:36 09/10/17 04:36 Attestation Narriative - Attestation Attestation Narrative: 09/13/17 16:28 Recommendation After examining the patient I agree with the above assessment. I am involved in the formulation of the patient's plan of care.
[2017-09-10] MEDS ORDERED: ADALIMUMAB 40 MG PO SCH (11:27)
[2017-09-11] MEDS ORDERED: CHLORTHALIDONE 25 MG TABLET PO SCH (08:00)
[2017-09-11] MEDS ORDERED: METHOTREXATE 2.5MG TABLET PO SCH (11:27)
== END 2017-09-10 11:54 | disposition home or self-care (01) | DRG 247 ==
LOC: CCU 18:09 → INTOOBSV 18:09
PROVIDERS: ADMIT Internal Medicine Cardiovascular Disease; ATTEND Internal Medicine Cardiovascular Disease